=== PATIENT | female | born 1995 | race American Indian/Alaskan Native ===

== ENCOUNTER 2017-04-14 13:15 | Outpatient (CLI) | payer MEDICAID ==
[2017-04-14 13:46] VITALS: BP 116/55
[2017-04-14] MEDS ORDERED: LACTATED RINGERS 500 ML IV ONE (13:59)
[2017-04-14 15:37] LABS: Bacteria,Urine 3+ /HPF (Negative); Bilirubin,Urine NEG (Negative); Blood,Urine NEG (Negative); Ketones,Urine NEG (Negative); Leukocyte Esterase,Urine LG (Negative); Mucus,Urine FEW /HPF; Nitrite,Urine NEG (Negative); Protein,Urine <15 mg/dL mg/dL (Negative); Urobilinogen,Urine < 2.0 mg/dL (<2.0)
[2017-04-14] MEDS ORDERED: ROCEPHIN/NS 1 GM/50 ML 1 GM/50 ML BAG IV SCH (17:00)
--- NOTE | 2017-04-15 10:07 | Ultrasound Report ---
Gestation: single Position: cephalic Amniotic Fluid: LAST = 11.8 cm Placenta: posterior Placental Grade: 0 Heart Rate: 145 BPM Cervical length: 4.3 cm (Normal > 3 cm) NEUROANATOMY VISUALIZED: Choroid Plexus Cisterna Magnum Cerebellum Lateral Ventricle ANATOMY VISUALIZED: Stomach Kidneys Bladder Diaphragm 4 Chamber Heart Heart 3 Vessel Cord Abd. Cord Insert SPINE VISUALIZED: Longitudinal Transverse BPD: 6.7 cm = 27 w 0 d HC: 24.5 cm = 26 w 4 d AC: 21.47 cm = 25 w 6 d FL: 4.5 cm = 25 w 0 d HC/AC Ratio: 1.14 Cephalic Index: 78.8 Estimated Weight: 845 grams LMP: 10/22/16 Clinical age = 24 w 6 d EDC: 07/29/17 US Gest. Age = 26 w 1 d EDC: 07/20/17
== END 2017-04-14 18:13 | disposition home or self-care (01) ==
LOC: TRG 13:15
PROVIDERS: ATTEND Obstetrics & Gynecology
DX: O47.02 False labor before 37 completed weeks of gestation, second trimester (principal); Z3A.26 26 weeks gestation of pregnancy
CPT/HCPCS: 59025; 76805; 81001; 96360; 96365; J0696; J7120